=== PATIENT | female | born 1930 | race Caucasian/White ===

== ENCOUNTER 2017-11-28 10:01 | Emergency (ER) | payer MEDICARE, OTHER ==
[2017-11-28] MEDS ORDERED: Ketorolac 60 MG/2 ML SDV IM STA (10:22)
[2017-11-28] MEDS ORDERED: carBAMazepine 100 MG/5 ML Susp ML 450 ML Bottle PO ONE (10:26)
--- NOTE | 2017-11-28 10:26 | EDM.PDOC ---
ED HPI GENERAL MEDICAL PROBLEM - General Chief Complaint: Neuro Symptoms/Deficits Stated Complaint: LEFT SIDE OF FACE Time Seen by Provider: 11/28/17 10:01 Source of Information: Reports: Patient, Family History Limitations: Reports: No Limitations - History of Present Illness INITIAL COMMENTS - FREE TEXT/NARRATIVE: 87 y.o.w.f with a H/O trigeminal neuralgica, came to the ed with her son because she was not able to minor her medication not able to open her mouth due to pain at her left cheek. Pt takes carbamazepin twice daily. Her SBP was >200. No other acute medical issues. BP 208/84 puse 112 RR 18 Pulse ox 99% 0n RA Temp 36.8 Onset Date: 11/28/17 Onset Time: 07:00 Duration: Hour(s): Location: Reports: Head Quality: Reports: Ache, Burning, Same as Previous Episode Severity: Severe Improves with: Reports: Medication Context: Reports: Other (trigeminal neuralgica) Associated Symptoms: Reports: No Other Symptoms Face Pain Score (Numeric/FACES): 10 - Related Data Allergies Allergy/AdvReac Type Severity Reaction Status Date / Time Sulfa (Sulfonamide Allergy Other Verified 11/28/17 10:16 Antibiotics) Home Meds: Home Meds carBAMazepine [Carbamazepine ER] 100 mg PO BID 11/28/17 [History] carBAMazepine [Carbamazepine] 100 mg PO DAILY 11/28/17 [History] Past Medical History Other Neuro History: trigenimal neuuropathy Social & Family History - Tobacco Use Smoking Status *Q: Never Smoker - Recreational Drug Use Recreational Drug Use: No ED ROS GENERAL - Review of Systems Review Of Systems: See Below Constitutional: Reports: No Symptoms HEENT: Reports: Other (left facial pain) Respiratory: Reports: No Symptoms Cardiovascular: Reports: No Symptoms Endocrine: Reports: No Symptoms GI/Abdominal: Reports: No Symptoms : Reports: No Symptoms Musculoskeletal: Reports: No Symptoms Skin: Reports: No Symptoms Neurological: Reports: Other (trigeminal neuralgica left face, H/O ) Psychiatric: Reports: No Symptoms Hematologic/Lymphatic: Reports: No Symptoms Immunologic: Reports: No Symptoms ED EXAM, NEURO - Physical Exam Exam: See Below Exam Limited By: No Limitations General Appearance: Alert, WD/WN, Mild Distress Eye Exam: Bilateral Eye: Normal Inspection Ears: Normal External Exam Nose: Normal Inspection Throat/Mouth: Normal Inspection, Normal Lips Head Exam: Atraumatic, Normocephalic Neck: Normal Inspection, Supple, Non-Tender Respiratory/Chest: No Respiratory Distress, Lungs Clear, Normal Breath Sounds Cardiovascular: Normal Peripheral Pulses, Regular Rate, Rhythm, No Edema GI/Abdominal: Normal Bowel Sounds, Soft, Non-Tender (Female) Exam: Deferred Rectal (Female) Exam: Deferred Neurological: Alert, Normal Mood/Affect, Normal Dorsiflexion, CN II-XII Intact, Normal Gait, Oriented x 3 Back Exam: Normal Inspection Extremities: Normal Inspection, Normal Range of Motion, Non-Tender, No Pedal Edema Psychiatric: Normal Affect, Normal Mood Skin Exam: Warm, Dry, Intact, Normal Color, No Rash Course - Vital Signs Text/Narrative:: 87 y.o.w.f with a H/O trigeminal neuralgica, came to the ed with her son because she was not able to minor her medication not able to open her mouth due to pain at her left cheek. Pt takes carbamazepin twice daily. Her SBP was >200. No other acute medical issues. BP 208/84 puse 112 RR 18 Pulse ox 99% 0n RA Temp 36.8 PE: WNWDWF with left jaw pain Impression: trigeminal neuralgica, HTN urgency Tx: Toradol, Clonidine, Carbamazepin Reexam: improved BP was 151/75 on D/C Plan: D/C with instructions Last Recorded V/S: Last Vital Signs Temp 36.3 C 11/28/17 10:19 Pulse 96 11/28/17 12:35 Resp 14 11/28/17 12:35 BP 157/74 H 11/28/17 12:35 Pulse Ox 99 11/28/17 12:35 - Orders/Labs/Meds Meds: Medications Discontinued Medications Generic Name Dose Route Start Last Admin Trade Name Freq PRN Reason Stop Dose Admin Carbamazepine 100 mg 11/28/17 10:26 Tegretol Suspension PO 11/28/17 10:27 ONETIME ONE Carbamazepine 100 mg 11/28/17 10:45 11/28/17 10:42 Tegretol PO 11/28/17 10:46 100 mg ONETIME ONE Administration Clonidine HCl 0.1 mg 11/28/17 11:32 11/28/17 11:47 Catapres PO 11/28/17 11:33 0.1 mg ONETIME ONE Administration Ketorolac Tromethamine 30 mg 11/28/17 10:22 11/28/17 10:31 Toradol IM 11/28/17 10:23 30 mg ONETIME STA Administration Departure - Departure Time of Disposition: 12:38 Disposition: Home, Self-Care 01 Condition: Good Clinical Impression: Trigeminal neuralgia of left side of face - Discharge Information Referrals: Sheldon Rivera MD [Primary Care Provider] - Forms: ED Department Discharge Additional Instructions: Please check your Blood pressure daily for next 3 days. please continue your meds, please f/u, come back if your symptoms get worse acutely
[2017-11-28] MEDS ORDERED: carBAMazepine 200 MG Cap.ER PO ONE (10:32)
[2017-11-28] MEDS ORDERED: carBAMazepine 100 MG Tab.Chew PO ONE (10:45)
[2017-11-28] MEDS ORDERED: cloNIDine 0.1 MG Tab PO ONE (11:32)
[2017-11-28 12:36] VITALS: BP 157/74
== END 2017-11-28 12:42 | disposition home or self-care (01) ==
LOC: FB.ED 10:01
DX: G50.0 Trigeminal neuralgia (principal); I16.0 Hypertensive urgency; Z88.2 Allergy status to sulfonamides; Z79.899 Other long term (current) drug therapy
CPT/HCPCS: 99283; A9270; J1885

== ENCOUNTER 2020-05-24 18:23 | Emergency (ER) | payer MEDICARE, OTHER ==
[2020-05-24] MEDS ORDERED: Metoprolol Succinate 25 MG Tab.ER PO ONE (18:55)
[2020-05-24] MEDS ORDERED: cloNIDine 0.1 MG Tab PO ONE (18:55)
--- NOTE | 2020-05-24 18:59 | EDM.PDOC ---
ED HPI GENERAL MEDICAL PROBLEM - General Chief Complaint: Cardiovascular Problem Stated Complaint: BP IS HIGH Time Seen by Provider: 05/24/20 18:56 Source of Information: Reports: Patient History Limitations: Reports: No Limitations - History of Present Illness INITIAL COMMENTS - FREE TEXT/NARRATIVE: states she was feeling flushed and her neighbour just bought new BP machine so she decided to check her BP and noted it was in the 190's she has no chest pain , no palpitations, no blurred vision , no headache no shortness of breath Pt take metoprolol 25 mg at bedtime - Related Data Allergies Allergy/AdvReac Type Severity Reaction Status Date / Time Sulfa (Sulfonamide Allergy Other Verified 05/24/20 18:38 Antibiotics) Home Meds: Home Meds carBAMazepine [Carbamazepine ER] 100 mg PO BID 11/28/17 [History] carBAMazepine [Carbamazepine] 100 mg PO DAILY 11/28/17 [History] Past Medical History Neurological History: Reports: Other (See Below) Other Neuro History: trigenimal neuuropathy Social & Family History - Caffeine Use Caffeine Use: Reports: None ED ROS GENERAL - Review of Systems Review Of Systems: See Below Constitutional: Reports: No Symptoms HEENT: Reports: No Symptoms Respiratory: Reports: No Symptoms Cardiovascular: Reports: Blood Pressure Problem, Palpitations Endocrine: Reports: No Symptoms GI/Abdominal: Reports: No Symptoms Musculoskeletal: Reports: No Symptoms Skin: Reports: No Symptoms Neurological: Denies: Dizziness, Headache, Paresthesia, Difficulty Walking, Weakness, Change in Speech, Gait Disturbance Psychiatric: Reports: No Symptoms ED EXAM, GENERAL - Physical Exam Exam: See Below Exam Limited By: No Limitations General Appearance: Alert, WD/WN, No Apparent Distress Eye Exam: Bilateral Eye: EOMI, PERRL Ears: Normal External Exam Ear Exam: Bilateral Ear: Auricle Normal, TM normal Nose: Normal Inspection Head: Atraumatic, Normocephalic Neck: Supple, Non-Tender Respiratory/Chest: No Respiratory Distress, Lungs Clear Cardiovascular: Regular Rate, Rhythm GI/Abdominal: Soft, Non-Tender Extremities: Normal Inspection, Normal Range of Motion Neurological: Alert, Oriented, CN II-XII Intact Psychiatric: Normal Affect, Normal Mood Course - Vital Signs Last Recorded V/S: Last Vital Signs Temp 36.9 C 05/24/20 18:30 Pulse 85 05/24/20 19:05 Resp 17 05/24/20 18:30 BP 221/89 H 05/24/20 19:05 Pulse Ox 99 05/24/20 18:30 - Orders/Labs/Meds Orders: Active Orders 24 hr Category Date Time Status EKG Documentation Completion [RC] ASDIRECTED Care 05/24/20 19:07 Active BASIC METABOLIC PANEL,BMP [CHEM] Stat Lab 05/24/20 19:07 Ordered CBC WITH AUTO DIFF [HEME] Stat Lab 05/24/20 19:07 Ordered TROPONIN I [CHEM] Stat Lab 05/24/20 19:07 Ordered Meds: Medications Discontinued Medications Generic Name Dose Route Start Last Admin Trade Name Freq PRN Reason Stop Dose Admin Clonidine HCl 0.1 mg 05/24/20 18:55 05/24/20 19:05 Catapres PO 05/24/20 18:56 0.1 mg ONETIME ONE Administration Labetalol HCl 10 mg 05/24/20 19:07 Normodyne IVPUSH 05/24/20 19:08 ONETIME ONE Protocol Metoprolol Succinate 25 mg 05/24/20 18:55 05/24/20 19:05 Toprol Xl PO 05/24/20 18:56 25 mg ONETIME ONE Administration - Re-Assessments/Exams Free Text/Narrative Re-Assessment/Exam: 05/24/20 19:17 pt given Clonidine 0.1 and metoprolol 25 mg pt signed out to Dr Brandt Departure - Departure Time of Disposition: 19:18 Disposition: Home, Self-Care 01 Condition: Fair Clinical Impression: Hypertensive heart disease, Hypertensive emergency Referrals: Sheldon Rivera MD [Primary Care Provider] - Forms: ED Department Discharge Sepsis Event Note (ED) - Evaluation Sepsis Screening Result: No Definite Risk - Focused Exam Vital Signs: Vital Signs Temp Pulse Pulse Resp BP BP Pulse Ox 05/24/20 19:05 85 221/89 H 05/24/20 18:30 36.9 C 84 17 238/86 H 99
[2020-05-24] MEDS ORDERED: Labetalol 20 MG/4 ML Syringe IVPUSH ONE (19:07)
[2020-05-24 20:32] VITALS: BP 174/70; PULSE 75
--- NOTE | 2020-05-24 21:32 | ER ---
DATE SEEN: 05/24/2020 CHIEF COMPLAINT: Hypertension. HISTORY OF PRESENT ILLNESS: This is an 89-year-old female who has hypertension, brought in because of high blood pressure reading. She also complained of flushing of the cheeks but no headache or chest pain. This was discovered incidentally. Upon arrival, her blood pressure was into 200 range systolic. PAST MEDICAL HISTORY: Hypertension. MEDICATIONS: Reviewed. SOCIAL HISTORY: She does not smoke or drink. PHYSICAL EXAMINATION: VITAL SIGNS: She is not in distress. VITAL SIGNS: Initial blood pressure was 220/81, afebrile. ENT: Negative. MENTAL STATUS: Alert. NEUROLOGIC: Normal. LABORATORIES: Troponin, CBC, and basic panel are normal. EKG was negative. IMPRESSION: Hypertension, uncontrolled. PLAN: She was given clonidine and regular metoprolol and then gave 10 mg of labetalol and her blood pressure came down to 174/70. I discharged her home to see PCP next week on Thursday. Return to the ED with worsening symptoms. /[id number] JOHN/MERY
== END 2020-05-24 21:16 | disposition home or self-care (01) ==
LOC: FB.ED 18:23
DX: I11.9 Hypertensive heart disease without heart failure (principal); I16.0 Hypertensive urgency; Z88.2 Allergy status to sulfonamides; Z79.899 Other long term (current) drug therapy
CPT/HCPCS: 36415; 80048; 84484; 85025; 93005; 96374; 99283; A9270; J3490; 99285